=== PATIENT | female | born 1995 | race Caucasian/White ===

== ENCOUNTER 2017-03-19 23:29 | Emergency (ER) | payer OTHER ==
[~2017-03-19] VITALS: Ht 157.5 cm; Wt 59.0 kg
[2017-03-19 23:29] VITALS: BP 126/71
[2017-03-20] MEDS ORDERED: IBUPROFEN 400 MG TABLET ONE (00:18)
[2017-03-20] MEDS ORDERED: IBUPROFEN 400 MG TABLET PO ONE (00:30)
== END 2017-03-20 00:38 | disposition home or self-care (01) ==
LOC: ER 23:29
DX: S50.11XA Contusion of right forearm, initial encounter (principal); Z88.7 Allergy status to serum and vaccine; X58.XXXA Exposure to other specified factors, initial encounter; Y93.89 Activity, other specified; Y92.89 Other specified places as the place of occurrence of the external cause; Y99.8 Other external cause status
CPT/HCPCS: 99282; A4606; Z7610